=== PATIENT | female | born 1975 | race Caucasian/White ===

== ENCOUNTER 2021-01-28 00:41 | Emergency (ER) | payer SELFPAY ==
[~2021-01-28] VITALS: Ht 162.6 cm; Wt 77.0 kg
[2021-01-28 01:35] LABS: BASOPHILS % 1.1 % (0.0-2.0); EOSINOPHILS % 0.9 % (0.0-5.0); HEMATOCRIT. 38.7 % (36.0-48.0); LYMPHOCYTES % 37.7 % (20.0-50.0); MEAN CORPUSCULAR HEMOGLOBIN 28.6 pg (28.0-32.0); MEAN CORPUSCULAR VOLUME 85.2 fL (81.0-99.0); MEAN PLATELET VOLUME 10.5 fl (7.4-10.4); MONOCYTES % 5.8 % (2.0-8.0); NEUTROPHILS % 54.5 % (40.0-76.0); PLATELET 207 x1000/uL (130-400); RED BLOOD CELL COUNT 4.54 mill/uL (4.2-5.4); RED CELL DISTRIBUTION WIDTH 13.7 % (11.6-14.6)
[2021-01-28 01:44] LABS: CHLORIDE 100 mEq/L (98-107)
[2021-01-28 01:54] LABS: BETA HYDROXYBUTYRATE 0.4 mMol/L (0.0-0.3)
[2021-01-28 01:59] LABS: ETHANOL BLOOD 299 mg/dL
[2021-01-28] MEDS ORDERED: INSULIN LISPRO 100 UNITS/ML SUBCUT SCH (02:45)
[2021-01-28] MEDS ORDERED: SODIUM CHLORIDE 0.9% 1000ML BAG (SEPSIS BOLUS) IV ONE (02:45)
[2021-01-28 04:00] VITALS: BP 108/69
== END 2021-01-28 04:20 | disposition home or self-care (01) ==
LOC: ER 00:41
DX: F10.129 Alcohol abuse with intoxication, unspecified (principal); R73.9 Hyperglycemia, unspecified; R73.03 Prediabetes; Y90.8 Blood alcohol level of 240 mg/100 ml or more
CPT/HCPCS: 36415; 80053; 80307; 80320; 80329; 82010; 82140; 82962; 83690; 85025; 93005; 96360; 96372; 99283; J1815; G0480